=== PATIENT | female | born 1940 | race Caucasian/White ===

== ENCOUNTER 2020-12-06 09:40 | Emergency (ER) | payer MEDICARE ==
[~2020-12-06] VITALS: Ht 157.5 cm; Wt 45.4 kg
[2020-12-06 11:26] VITALS: BP 124/73
== END 2020-12-06 12:45 | disposition home or self-care (01) ==
LOC: ER 09:44
DX: S00.83XA Contusion of other part of head, initial encounter (principal); W06.XXXA Fall from bed, initial encounter; Y93.84 Activity, sleeping; Y92.003 Bedroom of unspecified non-institutional (private) residence as the place of occurrence of the external cause
CPT/HCPCS: 70450; 72125; 99284